=== PATIENT | female | born 1970 ===

== ENCOUNTER → 2021-03-22 | Day surgery (SDC) | payer OTHER ==
[~2021-03-22] VITALS: Ht 172.7 cm; Wt 108.9 kg
[~2021-03-22] MED LIST: ALLEGRA ALLERG180 MG PO; AMLODIPINE BESY10 MG PO; ASPIRIN EC81 MG PO; BREO ELLIPTA 11 EACH; BUMETANIDE2 MG PO; COLACE100 MG PO; CRESTOR10 MG PO; ESTRADIOL VG; METFORMIN HCL1000 MG PO; MULTIVITAMIN1 EACH PO; OMEPRAZOLE40 MG PO; RYBELSUS7 MG PO; TOPROL XL 50 MG50 MG PO; VENLAFAXINE HC150 MG PO; VENTOLIN HFA IN18 GM INH
[2021-03-22 08:21] LABS: HCT 42.3 % (37.0-47.0); HGB 14.4 g/dl (12.5-16.0); MCH 31.1 pg (25.0-31.0); MCV 91.4 fL (78.0-100.0); MPV 9.5 fL (6.0-9.5); RBC 4.63 M/uL (4.20-5.40); RDW 12.7 % (11.5-14.0); WBC 8.4 K/uL (4.0-10.5)
== END | disposition home or self-care (01) ==
LOC: FAS 07:46
PROVIDERS: Legal Medicine
DX: M65.312 Trigger thumb, left thumb (principal); M25.842 Other specified joint disorders, left hand; Z91.048 Other nonmedicinal substance allergy status; Z90.49 Acquired absence of other specified parts of digestive tract
CPT/HCPCS: 36415; J0690; J1100; J1885; J2250; J2405; J2704; J2795; J3010; J7120